=== PATIENT | male | born 1960 | race Caucasian/White ===

== ENCOUNTER 2017-04-04 12:38 | Inpatient (IN) ==
[2017-04-04 14:59] LABS: Hematocrit 39.6 % (37.5-50.1); Hemoglobin 13.1 g/dL (12.9-16.9); Lymphocytes # 0.7 K/mcL (0.6-4.6); Mean Corpuscular HGB Conc 33.1 g/dL (31.6-35.5); Mean Corpuscular Hemoglobin 28.4 pg (28.0-33.3); Mean Corpuscular Volume 85.7 fL (83.0-100.0); Mean Platelet Volume 9.1 fL (9.4-12.4); Platelet Count 286 K/mcL (140-400); Red Blood Count 4.62 M/mcL (4.19-5.50); Red Cell Distribution Width 13.1 % (11.5-14.5)
[2017-04-04 15:10] LABS: Alanine Aminotransferase 23 Units/L (0-55); Albumin 3.1 g/dL (3.5-5.0); Albumin/Globulin Ratio 0.7 (1.1-2.2); Alkaline Phosphatase 97 Units/L (38-126); Aspartate Amino Transferase 27 Units/L (5-34); BUN/Creatinine Ratio 17 (6-26); Blood Urea Nitrogen 15 mg/dL (8-26); Calcium 9.8 mg/dL (8.6-10.8); Carbon Dioxide 27 mEq/L (19-29); Chloride 100 mEq/L (98-109); Globulin 4.6 g/dL (2.4-3.5); Glucose 148 mg/dL (70-99); Osmolality,Calculated 284 (280-300); Potassium 3.5 mEq/L (3.5-4.5); Sodium 135 mEq/L (136-145); Total Protein 7.7 g/dL (6.0-8.3); eGFR For African Americans > 60 (> 60); eGFR For Non-African Americans > 60 (> 60)
[2017-04-04 15:11] LABS: Bilirubin,Total < 0.3 mg/dL (0.2-1.2)
[2017-04-04 15:18] LABS: Monocytes # 0.7 K/mcL (0.0-1.3); Neutrophils # 15.5 K/mcL (1.6-8.9); Platelet Estimate Normal (Normal)
--- NOTE | 2017-04-04 15:25 | Emergency Department Note ---
Disposition Clinical Impression: Cellulitis Qualifiers: Site of cellulitis: extremity Site of cellulitis of extremity: lower extremity Laterality: right Qualified Code(s): L03.115 - Cellulitis of right lower limb Disposition: Admitted As Inpatient Referrals: Rosa Baugh MD [Primary Care Provider] - Forms: ED Satisfaction Letter Extremity Problem HPI - General Chief complaint: ED Extremity Problem,Nontraumatic Stated complaint: needs antibiotic per Dr. Andres Time Seen by Provider: 04/04/17 14:39 Source: patient Mode of arrival: ambulatory Limitations: no limitations Nursing Notes Reviewed: Yes Vital Signs Reviewed: Yes - History of Present Illness HPI Narrative: Patient presents to the ED with the chief complaint of right leg pain and swelling. She reports that 3 days ago he started developing pain and swelling in his right knee. Went to see his PCP who thought that it could be a septic arthritis , so he was referred to orthopedics. He went to see Dr. Andres today with orthopedics, who performed a knee MRI , which showed a diffuse cellulitis. So he was sent over here for further evaluation. Patient does report intermittent fevers over the last 2 days. He has had increasing pain and swelling which started in his knee and is gone, distal. He has an area over his medial malleolus that had a previous scar which has since blistered and opened up to start draining. No history of DVT or PE. States he is previously healthy. He is still able to ambulate and denies any chest pain or shortness of breath Pain Scale: 6 - Related Data Home Medications Medication Instructions Recorded Confirmed Cephalexin [Keflex] 500 mg PO TID 04/04/17 04/04/17 Tramadol HCl [Ultram] 50 - 100 mg PO Q6H PRN 04/04/17 04/04/17 Allergies Allergy/AdvReac Type Severity Reaction Status Date / Time ivp dye AdvReac Difficulty Uncoded 04/04/17 12:42 Breathing Constitutional: Reports: fever Eyes: Denies: vision change Cardiovascular: Denies: chest pain Respiratory: Denies: dyspnea Gastrointestinal: Denies: vomiting Musculoskeletal: Reports: as per HPI, joint swelling, arthralgia, myalgia. Denies: back pain Integumentary: Reports: rash, lesions Neurological: Denies: headache Endocrine: Denies: fatigue Past Medical History - Past Medical History Attestation: Yes The following information was validated with the patient. Source: patient Medical history: Reports: atrial fibrillation, cancer, kidney stones, other Psychiatric history: Reports: no psych history - Social History Smoking Status: Current every day smoker Smokeless Tobacco Status: Yes Alcohol use: Reports: occasionally Drug use: Reports: none Physical Exam - General Limitations: no limitations General appearance: alert, in no apparent distress - Head Head exam: atraumatic, normocephalic, normal inspection - Chest Chest inspection: Present: normal inspection, symmetric chest wall rise - Respiratory Respiratory exam: Present: normal lung sounds bilaterally - Cardiovascular Cardiovascular exam: Present: regular rate, normal rhythm, normal heart sounds - Abdominal Exam Abdominal exam: Present: soft, Non-Tender. Absent: tenderness, distention, guarding, rebound, rigidity - Expanded Lower Extremity Exam Hip/Pelvis exam: Present: normal inspection, full ROM Upper leg exam: Present: normal inspection, full ROM Knee exam: Present: tenderness, swelling, erythema, effusion. Absent: deformity , crepitus Lower leg exam: Present: full ROM, tenderness, swelling, erythema Ankle exam: Present: full ROM, tenderness, swelling, erythema, other. Absent: crepitus Foot/toe exam: Present: full ROM, tenderness, swelling. Absent: erythema Neurovascular/Tendon exam: Present: normal capillary refill. Absent: pulse deficit - Neurological Exam Neurological exam: Present: alert, oriented X3 - Psychiatric Psychiatric exam: Present: normal affect, normal mood - Skin Skin exam: Present: warm, dry, intact, erythema (2. Right knee and leg) Course Course Narrative: 56 -year-old male presenting with right knee cellulitis. Has been intermittently febrile, has a leukocytosis here, was started on Keflex and prednisone as an outpatient. Presents now for further evaluation. Patient does have tense compartments in his lower extremity, however, has normal sensation and pulses. Feel that compartment syndrome is low risk at this point. We will get blood cultures added a lactate IV antibiotics and CT his leg and admitted to the hospital. Vital Signs Temperature 98.1 F 04/04/17 12:43 Pulse Rate 78 04/04/17 12:43 Respiratory Rate 20 04/04/17 12:43 Blood Pressure 118/74 04/04/17 12:43 O2 Sat by Pulse Oximetry 94 04/04/17 12:43 Temperature 98.1 F 04/04/17 12:43 Pulse Rate 78 04/04/17 12:43 Respiratory Rate 20 04/04/17 12:43 Blood Pressure 118/74 04/04/17 12:43 O2 Sat by Pulse Oximetry 94 04/04/17 12:43 Oxygen Delivery Oxygen Delivery Room Air Extremity Problem, Nontraumati - Lab Data Result diagrams: 04/04/17 14:49 04/04/17 14:49 Lab Results 04/04/17 04/04/17 04/04/17 Range/Units 14:49 14:49 16:02 WBC 16.8 H (4.3-11.1) K/mcL RBC 4.62 (4.19-5.50) M/mcL Hgb 13.1 (12.9-16.9) g/dL Hct 39.6 (37.5-50.1) % MCV 85.7 (83.0-100.0) fL MCH 28.4 (28.0-33.3) pg MCHC 33.1 (31.6-35.5) g/dL RDW 13.1 (11.5-14.5) % Plt Count 286 (140-400) K/mcL MPV 9.1 L (9.4-12.4) fL Seg Neutrophils % 92.0 % Lymphocytes % 4.0 % Monocytes % 4.0 % Neutrophils # 15.5 H (1.6-8.9) K/mcL Lymphocytes # 0.7 (0.6-4.6) K/mcL Monocytes # 0.7 (0.0-1.3) K/mcL Platelet Estimate Normal (Normal) Sodium 135 L (136-145) mEq/L Potassium 3.5 (3.5-4.5) mEq/L Chloride 100 (98-109) mEq/L Carbon Dioxide 27 (19-29) mEq/L BUN 15 (8-26) mg/dL Creatinine 0.87 (0.72-1.25) mg/dL Est GFR ( Amer) > 60 (> 60) Est GFR (Non-Af Amer) > 60 (> 60) BUN/Creatinine Ratio 17 (6-26) Glucose 148 H (70-99) mg/dL Calculated Osmolality 284 (280-300) Lactic Acid 1.8 (0.5-2.2) mmol/L Calcium 9.8 (8.6-10.8) mg/dL Total Bilirubin < 0.3 (0.2-1.2) mg/dL AST 27 (5-34) Units/L ALT 23 (0-55) Units/L Alkaline Phosphatase 97 (38-126) Units/L C-Reactive Protein (Less than 5) mg/L Serum Total Protein 7.7 (6.0-8.3) g/dL Albumin 3.1 L (3.5-5.0) g/dL Globulin 4.6 H (2.4-3.5) g/dL Albumin/Globulin Ratio 0.7 L (1.1-2.2) 04/04/17 Range/Units 16:02 WBC (4.3-11.1) K/mcL RBC (4.19-5.50) M/mcL Hgb (12.9-16.9) g/dL Hct (37.5-50.1) % MCV (83.0-100.0) fL MCH (28.0-33.3) pg MCHC (31.6-35.5) g/dL RDW (11.5-14.5) % Plt Count (140-400) K/mcL MPV (9.4-12.4) fL Seg Neutrophils % % Lymphocytes % % Monocytes % % Neutrophils # (1.6-8.9) K/mcL Lymphocytes # (0.6-4.6) K/mcL Monocytes # (0.0-1.3) K/mcL Platelet Estimate (Normal) Sodium (136-145) mEq/L Potassium (3.5-4.5) mEq/L Chloride (98-109) mEq/L Carbon Dioxide (19-29) mEq/L BUN (8-26) mg/dL Creatinine (0.72-1.25) mg/dL Est GFR ( Amer) (> 60) Est GFR (Non-Af Amer) (> 60) BUN/Creatinine Ratio (6-26) Glucose (70-99) mg/dL Calculated Osmolality (280-300) Lactic Acid (0.5-2.2) mmol/L Calcium (8.6-10.8) mg/dL Total Bilirubin (0.2-1.2) mg/dL AST (5-34) Units/L ALT (0-55) Units/L Alkaline Phosphatase (38-126) Units/L C-Reactive Protein 227 H (Less than 5) mg/L Serum Total Protein (6.0-8.3) g/dL Albumin (3.5-5.0) g/dL Globulin (2.4-3.5) g/dL Albumin/Globulin Ratio (1.1-2.2) Attestation Statement - Attestation Attestation: I examined this patient and my medical decision-making was reviewed with the Resident Physician. I agree with the documented findings, disposition and treatment plan as described except to the extent set forth below. In summary this is a male patient with known cellulitis to the lower extremity. He has confirmed cellulitis on MRI. Presents today with worsening cellulitis from outpatient center. Outpatient physician is requesting admission for IV antibiotics. Patient has soft compartments but moderate swelling. Ultrasound was obtained to rule out DVT. This is negative. lirnc score was 5. Vancomycin as well as Zosyn initiated. X-ray obtained to rule out gas. Plan to admit for evaluation of cellulitis. No evidence of DVT on ultrasound.
[2017-04-04] MEDS ORDERED: *HR* OxyCODONE/APAP 10/325 TABLET PO ONE (15:38)
[2017-04-04] MEDS ORDERED: *HR* LORazepam 1 MG TABLET PO ONE (15:38)
[2017-04-04] MEDS ORDERED: Piperacillin/Tazobactam 4.5 GM in D5% in Water (Mini-Bag+) 100 ML IVPB ONE (15:39)
[2017-04-04] MEDS ORDERED: Vancomycin 1,250 MG in D5% in Water 250 ML IVPB ONE (15:39)
--- NOTE | 2017-04-04 17:49 | Venous Imaging Report ---
LE Venous Duplex Patient Name:Prosper Rivers Order Number:[id number] Procedure Date:04/04/2017 Date:1960Age:56 yrs Gender:Male Location:[facility] ED Room #: ER10 Station Installation Supervisor:Brunilda rAt RDCS Referring MD:Mark Arce DO core stacker:Rosa Buagh MD Reading MD:Maco Carter MD , FACS Primary Indications:Swelling of limb Secondary Indications: Impressions: Right lower extremity: normal superficial and deep exam. Recommendations: Preliminary given to Dr Arce in ED. Findings Venous Duplex Results: Right: Venous imaging of the lower extremity reveals full patency and normal vessel compressibility of the right distal iliac, right common femoral, right superficial femoral, right popliteal, right posterior tibial, right peroneal, right great saphenous and right lesser saphenous. Doppler signals in the evaluated veins were normal. Prior Study: No prior study available for comparison. Lower Extremity Venous Duplex Side Vein Compress Spontaneous Flow Augment Diameter (cm) Depth (cm) Right Distal Iliac Normal Yes Phasic Yes Right Common Femoral Normal Yes Phasic Yes Right Superficial Femoral Normal Yes Phasic Yes Right Popliteal Normal Yes Phasic Yes Right Posterior Tibial Normal Yes Phasic Yes Right Peroneal Normal Yes Phasic Yes Right Great Saphenous Normal Yes Phasic Yes Right Lesser Saphenous Normal Yes Phasic Yes Updated by Maco Carter MD, FACS on 04/04/2017 5:42:54 PM Maco Carter MD electronically signed on 04/04/2017 5:43:11 PM with status of Final
--- NOTE | 2017-04-04 21:29 | Internal Med History&Physical ---
Date of Encounter: 04/04/17 Time of Encounter: 21:24 Assessment and Plan (1) Cellulitis of right lower extremity Current visit: Yes Status: Acute Patient received treatment with Keflex outpatient for 4 days however her symptoms got worse. This suggests the presence of cellulitis of the lower extremity which failed outpatient treatment. Plan: We will admit the patient to the hospital. He will require 3 days of IV antibiotics. We will follow-up blood culture drawn in the emergency department. We will start broad-spectrum IV antibiotics with Zosyn and vancomycin to cover streptococcus, MRSA and gram-negative rods. We will provide pain control with oxycodone and IV Dilaudid for breakthrough pain. He is at high risk for morbidity mortality and complications including compartment syndrome due to severe cellulitis requiring treatment with IV vancomycin which needs blood level monitoring for toxicity. (2) Tobacco abuse disorder Current visit: Yes Status: Acute I have provided smoking cessation counseling. We will offer nicotine replacement therapy as needed. (3) Colon cancer Current visit: Yes Status: Acute I recommend outpatient follow-up with oncologist. Qualifiers: Colon location: unspecified part of colon Qualified Code(s): C18.9 - Malignant neoplasm of colon, unspecified (4) DVT prophylaxis Current visit: Yes Status: Acute Subcutaneous Lovenox. (5) Patellar bursitis of right knee Current visit: Yes Status: Acute Patellar bursitis indicated by outpatient MRI. Broad spectrum IV antibiotics with Zosyn and vancomycin. Internal Medicine - H&P: HPI Chief complaint: Right knee pain Admitted From: Emergency Dept Plans for Post Hospital Care: Home History of present illness: Mr. Rivers is a 56 year old male with past medical history significant for colon cancer who presented to the hospital for evaluation of right knee pain. Mr. Rivers reports that the pain started 5 days ago just under his right knee cap. He does not recall having any injuries to the right lower extremity or any insect bites. His pain got worse and was associated with swelling of the right knee and started involving the right calf and causing discoloration of the skin. He noticed some blister formation on the inside of the right ankle that ruptured and started leaking some clear fluid. Today he reports that the pain is severe with ambulation, mild to moderate after administration of pain medication and at rest, dull and aching about the right knee and right lower extremity and still associated with swelling. He also had associated subjective fevers and body aches. He was treated with his PCP with Keflex and prednisone but did not notice any improvement. He had an MRI of the lower extremity which reportedly showed soft tissue swelling. A 10 point review of systems was performed. Pertinent positives as above, otherwise negative. Past medical history: Colon cancer status post resection and chemotherapy. Family history: Positive for colon cancer and the patient's paternal grandmother Social history: He smokes one pack of cigarettes a day, drinks alcohol socially , denies recreational drug use. Past Med Surg Social Fam HX - Past Medical History Medical history: atrial fibrillation, cancer, kidney stones, other Psychiatric history: no psych history - Past Surgical History Surgical History: cholecystectomy - Social History Smoking Status: Current every day smoker Packs per day: 1 Smokeless Tobacco Status: Yes Alcohol use: occasionally Drug use: none - Family History Paternal Grandmother Living Status: Cause of : colon cancer Hx Family Cancer: Yes (Colon cancer) Father Living Status: Cause of : ALS Hx Family Cardiac Disorders: Yes (NM, Triple bipass) Internal Medicine - H&P: Meds Cephalexin [Keflex] 500 mg PO TID 04/04/17 [History] Tramadol HCl [Ultram] 50 - 100 mg PO Q6H PRN 04/04/17 [History] Allergies ivp dye Adverse Reaction (Uncoded 04/04/17 12:42) Difficulty Breathing All Systems PM: A 10-system review of systems was performed and is negative for pertinent findings except as documented above in the HPI. - Constitutional Vitals: Temp Pulse Resp BP Pulse Ox 97.5 F L 86 18 109/73 95 04/04/17 20:08 04/04/17 20:08 04/04/17 20:08 04/04/17 20:08 04/04/17 20:08 - Eye Eye exam: Present: conjuntiva pink, sclera anicteric Additional comments: Right eye cataract and decreased pupillary response to light. Left pupil with brisk reaction to light. - Neck Neck exam general surgery: Present: supple, trachea midline. Absent: lymphadenopathy - Respiratory Respiratory exam: Present: CTAB. Absent: accessory muscle use, rales, rhonchi, wheezes - Cardiovascular Cardiovascular exam: Present: RRR, +S1, +S2. Absent: diastolic murmur, gallop, rubs, systolic murmur - GI/Abdominal GI/Abdominal exam: Present: hernia (Reducible incisional abdominal hernia), normal bowel sounds, soft, no peritoneal signs. Absent: distended, tenderness - Extremities Exam Extremities exam: Present: pedal edema (See skin exam), warm, radial pulses palpable and symetrical. Absent: calf tenderness, cyanotic - Neurological Exam Neurological exam: Present: CN II-XII intact, oriented X3, no focal deficits. Absent: pronater drift, facial droop, speech deficit - Skin Additional comments: Right lower extremity soft tissue swelling below the knee and also involving the subpatellar area with an area of redness and warmth, 2 superficial erosions on the medial aspect of the right ankle appeared to be ruptured blisters. No drainage. No fluctuance. Pulses are strong at dorsalis pedis bilaterally. Internal Med - H&P Results - Labs CBC & Chem 7: 04/04/17 14:49 04/04/17 14:49 - Impressions MRI of the right lower extremity done outpatient reveals soft tissue swelling of the lower extremity consistent with cellulitis, trace right knee effusion unlikely to represent septic joint.
[2017-04-04] MEDS ORDERED: Naloxone 0.4 MG/ML INJ IVP PRN (21:38)
[2017-04-04] MEDS ORDERED: Acetaminophen 325 MG TABLET PO PRN (21:38)
[2017-04-04] MEDS ORDERED: Vancomycin 1,250 MG in D5% in Water 250 ML IVPB SCH (22:00)
[2017-04-05] MEDS: Piperacillin/Tazobactam 3.375 GM in D5% in Water (Mini-Bag+) 100 ML IVPB SCH ×3 (00:21→15:42)
[2017-04-05] MEDS: Vancomycin 1,250 MG in D5% in Water 250 ML IVPB SCH ×2 (04:24→15:41)
[2017-04-05] MEDS: *HR* OxyCODONE Immed Rel 5 MG TABLET PO PRN ×3 (04:29→18:44)
[2017-04-05] MEDS: *HR* Enoxaparin 40 MG/0.4 ML SYRINGE SQ SCH (04:30)
[2017-04-05 06:39] LABS: Basophils % 0.1 %; Eosinophils % 0.4 %; Hematocrit 34.2 % (37.5-50.1); Immature Granulocytes % 0.8 % (0-4); Lymphocytes # 1.8 K/mcL (0.6-4.6); Mean Corpuscular HGB Conc 33.6 g/dL (31.6-35.5); Mean Corpuscular Hemoglobin 28.9 pg (28.0-33.3); Mean Corpuscular Volume 85.9 fL (83.0-100.0); Mean Platelet Volume 9.4 fL (9.4-12.4); Monocytes # 0.8 K/mcL (0.0-1.3); Monocytes % 8.3 %; Neutrophils # 7.2 K/mcL (1.6-8.9); Platelet Count 236 K/mcL (140-400); Red Blood Count 3.98 M/mcL (4.19-5.50); Red Cell Distribution Width 13.1 % (11.5-14.5); Segmented Neutrophils % 72.4 %
[2017-04-05 06:41] LABS: Hemoglobin 11.5 g/dL (12.9-16.9)
[2017-04-05 06:52] LABS: BUN/Creatinine Ratio 16 (6-26); Blood Urea Nitrogen 16 mg/dL (8-26); Calcium 8.9 mg/dL (8.6-10.8); Carbon Dioxide 26 mEq/L (19-29); Chloride 105 mEq/L (98-109); Glucose 100 mg/dL (70-99); Magnesium 1.9 mg/dL (1.6-2.6); Osmolality,Calculated 285 (280-300); Potassium 3.4 mEq/L (3.5-4.5); Sodium 137 mEq/L (136-145); eGFR For African Americans > 60 (> 60); eGFR For Non-African Americans > 60 (> 60)
--- NOTE | 2017-04-05 07:51 | Orthopedic Consult Note ---
Date of Encounter: 04/05/17 Time of Encounter: 07:48 History of Present Illness HPI: Mr. Rivers is a 56 year old male Seen in our office yesterday by Dr. Andres for right leg cellulitis. Patient seen again this morning. States that the swelling is improving. Physical exam Right leg Erythema over tibial tubercle swelling right lower extremity Pain-free range of motion right knee No right knee effusion Neurovascularly intact MRI reviewed, minimal fluid in right knee joint, diffuse swelling no focal findings for abscess. Recommend continued IV antibiotics until swelling and symptoms improve no surgical intervention necessary. Past Med Surg Social Fam HX - Past Medical History Medical history: atrial fibrillation, cancer, kidney stones, other Psychiatric history: no psych history - Past Surgical History Surgical History: cholecystectomy - Social History Smoking Status: Current every day smoker Packs per day: 1 Smokeless Tobacco Status: Yes Alcohol use: occasionally Drug use: none - Family History Paternal Grandmother Living Status: Cause of : colon cancer Hx Family Cancer: Yes (Colon cancer) Father Living Status: Cause of : ALS Hx Family Cardiac Disorders: Yes ([place], Triple bipass) Medications and Allergies Cephalexin [Keflex] 500 mg PO TID 04/04/17 [History] Tramadol HCl [Ultram] 50 - 100 mg PO Q6H PRN 04/04/17 [History] Allergies ivp dye Adverse Reaction (Uncoded 04/04/17 12:42) Difficulty Breathing All Systems Reviewed: A 10-system review of systems was performed and is negative for pertinent findings except as documented above in the HPI. Physical Exam - Constitutional Vitals: Temp Pulse Resp BP Pulse Ox 98.1 F 87 16 112/68 99 04/05/17 06:53 04/05/17 06:53 04/05/17 06:53 04/05/17 06:53 04/05/17 06:53 Results - Labs Result Diagrams: 04/05/17 06:02 04/05/17 06:02 Labs: Abnormal lab results RBC 3.98 M/mcL (4.19-5.50) L 04/05/17 06:02 Hgb 11.5 g/dL (12.9-16.9) L D 04/05/17 06:02 Hct 34.2 % (37.5-50.1) L 04/05/17 06:02 Potassium 3.4 mEq/L (3.5-4.5) L 04/05/17 06:02 Glucose 100 mg/dL (70-99) H 04/05/17 06:02 C-Reactive Protein 227 mg/L (Less than 5) H 04/04/17 16:02 Albumin 3.1 g/dL (3.5-5.0) L 04/04/17 14:49 Globulin 4.6 g/dL (2.4-3.5) H 04/04/17 14:49 Albumin/Globulin Ratio 0.7 (1.1-2.2) L 04/04/17 14:49 H & H 04/05/17 Range/Units 06:02 Hgb 11.5 L D (12.9-16.9) g/dL Hct 34.2 L (37.5-50.1) % All other labs normal. Consult Discharge Plan - Plan Referrals: Rosa Baugh MD [Primary Care Provider] -
[2017-04-05] MEDS: *HR* HYDROmorphone (PF) 1 MG/ML SYRINGE IVP PRN ×3 (08:20→20:40)
--- NOTE | 2017-04-05 14:17 | Internal Med Progress Note ---
Date of Encounter: 04/06/17 Time of Encounter: 14:15 - Assessment and plan (1) Cellulitis of right lower extremity Current Visit: Yes Status: Acute Assessment and plan: admitted with Cellulitis of right lower extremity had previous history of colon cancer was seen by [facility] (PCP) and referred to ortho for ?bursitis. Seen by Ortho as outpatient and MRI was done which did not show any knee joint involvement. admitted in view of worsening cellulitis. Started on appropriate abx and Ortho recommendations appreciated. US Lower extremity :negative for DVT plan will keep close follow up on blood cultures will continue present treatment leg elevation will follow ortho recommendations (2) Colon cancer Current Visit: Yes Status: Acute Assessment and plan: history of colon cancer with prolong hospitalization with multiple surgeries in past Qualifiers: Colon location: unspecified part of colon Qualified Code(s): C18.9 - Malignant neoplasm of colon, unspecified (3) Tobacco abuse disorder Current Visit: Yes Status: Acute Assessment and plan: active smoker. not willing to quit (4) DVT prophylaxis Current Visit: Yes Status: Acute Assessment and plan: appropriate DVT prophylaxis. Late entry: i had seen this patient on 04/05 and note was generated on 04/05 but due to another patient's acute illness this note was not completed on 04/05. this note is complete on 04/06 but should be bill for 04/05. Medical decision making: patient's clinical condition may worse in spite of appropriate medications due underlying condition. - Subjective Interval history: Patient seen and examined. Chart reviewed. Patient is lying comfortably in her bed. Patient complains of right extremity pain. Patient denies cough, shortness of breath nausea and vomiting. - Constitutional Vitals: Temp Pulse Resp BP Pulse Ox 98.4 F 84 16 118/64 99 04/05/17 09:46 04/05/17 09:46 04/05/17 09:46 04/05/17 09:46 04/05/17 09:46 General appearance: Present: A&O X 3, morbidly obese, pleasant, no acute distress - Head Head exam: Present: atraumatic, normocephalic - Eye Eye exam: Present: PERRL, conjuntiva pink, sclera anicteric Pupils: Present: PERRL - Neck Neck exam general surgery: Present: supple, trachea midline. Absent: lymphadenopathy - Respiratory Respiratory exam: Present: CTAB. Absent: accessory muscle use, rales, rhonchi, wheezes - Cardiovascular Cardiovascular exam: Present: RRR, +S1, +S2. Absent: diastolic murmur, gallop, rubs, systolic murmur - GI/Abdominal GI/Abdominal exam: Present: normal bowel sounds, soft, no peritoneal signs. Absent: distended, tenderness - Extremities Exam Extremities exam: Present: warm, radial pulses palpable and symetrical. Absent : calf tenderness, cyanotic, pedal edema - Neurological Exam Neurological exam: Present: CN II-XII intact, oriented X3, no focal deficits. Absent: pronater drift, facial droop, speech deficit - Skin Skin exam: Present: dry, intact Internal Medicine: Result - Labs CBC & Chem 7: 04/05/17 06:02 04/05/17 06:02 Labs: Short CBC 04/05/17 Range/Units 06:02 WBC 10.0 (4.3-11.1) K/mcL Hgb 11.5 L D (12.9-16.9) g/dL Hct 34.2 L (37.5-50.1) % Plt Count 236 (140-400) K/mcL Neutrophils # 7.2 (1.6-8.9) K/mcL BMP 04/05/17 06:02 Sodium 137 Potassium 3.4 L Chloride 105 Carbon Dioxide 26 BUN 16 Creatinine 0.97 Glucose 100 H Calcium 8.9 Consult Discharge Plan - Plan Referrals: Rosa Baugh MD [Primary Care Provider] -
[2017-04-05] MEDS ORDERED: Acetaminophen IV 1,000 MG/100 ML INFUS..BTL IVPB ONE (23:15)
[2017-04-06] MEDS: Piperacillin/Tazobactam 3.375 GM in D5% in Water (Mini-Bag+) 100 ML IVPB SCH ×3 (00:32→16:34)
[2017-04-06] MEDS ORDERED: Ketorolac 30 MG/ML VIAL IVP ONE (01:01)
[2017-04-06] MEDS ORDERED: *HR* HYDROmorphone (PF) 1 MG/ML SYRINGE IVP PRN (01:02)
--- NOTE | 2017-04-06 01:11 | Orthopedics Progress Note ---
Date of Encounter: 04/06/17 Time of Encounter: 01:06 Subjective Interval history: Called to see patient for concern of compartment syndrome by hospitalist. Patient seen this morning no acute distress. Reports getting up for shower having leg dependent and then having increased pain getting back into bed. On physical exam still with persistent swelling of right lower extremity Still with erythema over tibial tubercle Compartments of right lower leg are soft although he is sensitive to light touch. He has no pain on passive range of motion of his toes or his ankle. Neurovascular intact distally Clinically the patient does not have compartment syndrome. I have recommended elevation, I ordered foot pumps this morning which were not ordered today placed on the patient now, we increased his pain medication slightly, started him on Neurontin since the swelling may be irritating the nerves. He will also received a dose of Toradol. Once again with soft compartments no pain with passive range of motion neurovascularly intact. I have No suspicion for compartment syndrome. Objective Vital signs: Vital Signs Temp Pulse Resp BP Pulse Ox 04/06/17 00:53 97.7 F 75 16 109/65 98 04/05/17 21:32 98.0 F 98 20 123/77 98 04/05/17 14:11 98.8 F 89 16 123/67 99 04/05/17 09:46 98.4 F 84 16 118/64 99 04/05/17 07:58 99 04/05/17 06:53 98.1 F 87 16 112/68 99 04/05/17 05:02 97.7 F 83 17 108/78 98 Intake and Output 04/05/17 04/05/17 04/06/17 15:59 23:59 07:59 Intake Total 800 / 800 350 / 350 Output Total 250 / 250 Balance 550 / 550 350 / 350 Intake: IV Fluids 350 / 350 350 / 350 Zosyn 3.375 GM In 100 / 100 100 / 100 Dextrose 5% (Minibag+) 100 ML 100 ML @ 25 mls/hr IVPB Q8HR [facility] Rx#: [id number] Vancocin 1,250 MG In 250 / 250 250 / 250 Dextrose 5% 250 ML @ 166. 667 mls/hr IVPB Q12H [facility] Rx#:[id number] Oral 450 / 450 Output: Urine 250 / 250 Other: Meal Lunch Percent of Meal Consumed 25% - Labs CBC & BMP: 04/05/17 06:02 07/29/17 06:02 Labs: Abnormal lab results RBC 3.98 M/mcL (4.19-5.50) L 04/05/17 06:02 Hgb 11.5 g/dL (12.9-16.9) L D 04/05/17 06:02 Hct 34.2 % (37.5-50.1) L 04/05/17 06:02 Potassium 3.4 mEq/L (3.5-4.5) L 04/05/17 06:02 Glucose 100 mg/dL (70-99) H 04/05/17 06:02 C-Reactive Protein 227 mg/L (Less than 5) H 04/04/17 16:02 Albumin 3.1 g/dL (3.5-5.0) L 04/04/17 14:49 Globulin 4.6 g/dL (2.4-3.5) H 04/04/17 14:49 Albumin/Globulin Ratio 0.7 (1.1-2.2) L 04/04/17 14:49 Consult Discharge Plan - Plan Referrals: Rosa Baugh MD [Primary Care Provider] -
[2017-04-06] MEDS: Gabapentin 300 MG CAPSULE PO SCH ×4 (01:25→21:29)
[2017-04-06 04:36] LABS: Basophils % 0.4 %; Eosinophils # 0.1 K/mcL (0.0-0.6); Eosinophils % 0.6 %; Hematocrit 35.9 % (37.5-50.1); Hemoglobin 11.9 g/dL (12.9-16.9); Lymphocytes # 1.7 K/mcL (0.6-4.6); Lymphocytes % 18.7 %; Mean Corpuscular HGB Conc 33.1 g/dL (31.6-35.5); Mean Corpuscular Hemoglobin 28.3 pg (28.0-33.3); Mean Corpuscular Volume 85.5 fL (83.0-100.0); Mean Platelet Volume 9.2 fL (9.4-12.4); Monocytes # 0.9 K/mcL (0.0-1.3); Monocytes % 10.5 %; Neutrophils # 6.1 K/mcL (1.6-8.9); Platelet Count 243 K/mcL (140-400); Red Cell Distribution Width 13.3 % (11.5-14.5); Segmented Neutrophils % 68.8 %
[2017-04-06 04:49] LABS: Alanine Aminotransferase 76 Units/L (0-55); Albumin/Globulin Ratio 0.7 (1.1-2.2); Alkaline Phosphatase 113 Units/L (38-126); Aspartate Amino Transferase 81 Units/L (5-34); BUN/Creatinine Ratio 17 (6-26); Bilirubin,Total 0.5 mg/dL (0.2-1.2); Blood Urea Nitrogen 16 mg/dL (8-26); Calcium 8.7 mg/dL (8.6-10.8); Carbon Dioxide 25 mEq/L (19-29); Chloride 103 mEq/L (98-109); Globulin 3.5 g/dL (2.4-3.5); Glucose 93 mg/dL (70-99); Osmolality,Calculated 281 (280-300); Potassium 3.7 mEq/L (3.5-4.5); Sodium 135 mEq/L (136-145); eGFR For African Americans > 60 (> 60); eGFR For Non-African Americans > 60 (> 60)
[2017-04-06 04:50] LABS: Albumin 2.4 g/dL (3.5-5.0); Total Protein 5.9 g/dL (6.0-8.3)
[2017-04-06] MEDS: Vancomycin 1,250 MG in D5% in Water 250 ML IVPB SCH ×2 (05:09→16:34)
[2017-04-06] MEDS: *HR* Enoxaparin 40 MG/0.4 ML SYRINGE SQ SCH (05:10)
--- NOTE | 2017-04-06 11:09 | Venous Imaging Report ---
LE Venous Duplex Patient Name:Prosper Rivers Order Number:[id number] Procedure Date:04/06/2017 Date:1960Age:56 yrs Gender:Male Location:[facility] Room #: 3NE24 Major Appliance Assembly Supervisor:Helen Mendez RDCS Referring MD:Brayan Arechiga MD yarn conditioner:Rosa Baugh MD Reading MD:Maco Carter MD , FACS Primary Indications:Leg pain, swelling Secondary Indications: Risk Factors Yes/No Hx of DVT No Anticoagulants No Impressions: Right lower extremity: normal superficial and deep exam. Left lower extremity: normal contralateral exam. Findings Venous Duplex Results: Right: Venous imaging of the lower extremity reveals full patency and normal vessel compressibility of the right distal iliac, right common femoral, right superficial femoral, right popliteal, right posterior tibial, right peroneal, right great saphenous and right lesser saphenous. Doppler signals in the evaluated veins were normal. Left: Venous imaging of the lower extremity reveals full patency and normal vessel compressibility of the left common femoral. Doppler signals in the evaluated veins were normal. Prior Study: No change compared to prior study dated: 04/04/2017. PREVIOUS DOPPLER ON RLE NEGATIVE FOR DVT. Lower Extremity Venous Duplex Side Vein Compress Spontaneous Flow Augment Diameter (cm) Depth (cm) Right Distal Iliac Normal Yes Phasic Yes Right Common Femoral Normal Yes Phasic Yes Right Superficial Femoral Normal Yes Phasic Yes Right Popliteal Normal Yes Phasic Yes Right Posterior Tibial Normal Yes Phasic Yes Right Peroneal Normal Yes Phasic Yes Right Great Saphenous Normal Yes Phasic Yes Right Lesser Saphenous Normal Yes Phasic Yes Left Common Femoral Normal Yes Phasic Yes Updated by Maco Carter MD, FACS on 04/06/2017 11:04:01 AM Maco Carter MD electronically signed on 04/06/2017 11:04:30 AM with status of Final
[2017-04-06] MEDS: *HR* OxyCODONE Immed Rel 5 MG TABLET PO PRN ×2 (14:59→19:38)
--- NOTE | 2017-04-06 17:49 | Internal Med Progress Note ---
Date of Encounter: 04/06/17 Time of Encounter: 17:47 - Assessment and plan (1) Cellulitis of right lower extremity Current Visit: Yes Status: Acute Assessment and plan: admitted with Cellulitis of right lower extremity had previous history of colon cancer was seen by [employer] UP OPERATOR HELPER (PCP) and referred to ortho for ?bursitis. Seen by Ortho as outpatient and MRI was done which did not show any knee joint involvement. admitted in view of worsening cellulitis. Started on appropriate abx and Ortho recommendations appreciated. US Lower extremity :negative for DVT plan will keep close follow up on blood cultures will continue present treatment leg elevation will follow ortho recommendations 04/06/2017. Overnight events noted. Possibility of her compartment syndrome was raised due to the severe pain. Orthopedic input noted and appreciated. Plan: We will continue antibiotics for now. Elevation of foot. Close observation. (2) Colon cancer Current Visit: Yes Status: Acute Assessment and plan: history of colon cancer with prolong hospitalization with multiple surgeries in past Qualifiers: Colon location: unspecified part of colon Qualified Code(s): C18.9 - Malignant neoplasm of colon, unspecified (3) Tobacco abuse disorder Current Visit: Yes Status: Acute Assessment and plan: active smoker. not willing to quit (4) DVT prophylaxis Current Visit: Yes Status: Acute Assessment and plan: appropriate DVT prophylaxis. Late entry: i had seen this patient on 04/05 and note was generated on 04/05 but due to another patient's acute illness this note was not completed on 04/05. this note is complete on 04/06 but should be bill for 04/05. Medical decision making: patient's clinical condition may worse in spite of appropriate medications due underlying condition. - Subjective Interval history: Patient seen and examined. Chart reviewed. Patient is lying comfortably in her bed. Patient complains of right extremity pain. Patient denies cough, shortness of breath nausea and vomiting. 04/06/2017. Patient seen and examined. HEENT is comfortably lying in the bed. Noted that there is a still swelling of the right lower extremity. Orthopedic input appreciated. - Constitutional Vitals: Temp Pulse Resp BP Pulse Ox 98.8 F 80 16 137/87 97 04/06/17 15:16 04/06/17 15:16 04/06/17 15:16 04/06/17 15:16 04/06/17 15:16 General appearance: Present: A&O X 3, morbidly obese, pleasant, no acute distress - Head Head exam: Present: atraumatic, normocephalic - Eye Eye exam: Present: PERRL, conjuntiva pink, sclera anicteric Pupils: Present: PERRL - Neck Neck exam general surgery: Present: supple, trachea midline. Absent: lymphadenopathy - Respiratory Respiratory exam: Present: CTAB. Absent: accessory muscle use, rales, rhonchi, wheezes - Cardiovascular Cardiovascular exam: Present: RRR, +S1, +S2. Absent: diastolic murmur, gallop, rubs, systolic murmur - GI/Abdominal GI/Abdominal exam: Present: normal bowel sounds, soft, no peritoneal signs. Absent: distended, tenderness - Extremities Exam Extremities exam: Present: warm, radial pulses palpable and symetrical. Absent : calf tenderness, cyanotic, pedal edema Additional comments: Right lower extremity swollen and tender. - Neurological Exam Neurological exam: Present: CN II-XII intact, oriented X3, no focal deficits. Absent: pronater drift, facial droop, speech deficit - Skin Skin exam: Present: dry, intact Internal Medicine: Result - Labs CBC & Chem 7: 04/06/17 03:40 04/06/17 03:40 Labs: Short CBC 04/06/17 Range/Units 03:40 WBC 8.9 (4.3-11.1) K/mcL Hgb 11.9 L (12.9-16.9) g/dL Hct 35.9 L (37.5-50.1) % Plt Count 243 (140-400) K/mcL Neutrophils # 6.1 (1.6-8.9) K/mcL BMP 04/06/17 03:40 Sodium 135 L Potassium 3.7 Chloride 103 Carbon Dioxide 25 BUN 16 Creatinine 0.92 Glucose 93 Calcium 8.7 Liver Function 04/06/17 Range/Units 03:40 Total Bilirubin 0.5 (0.2-1.2) mg/dL AST 81 H (5-34) Units/L ALT 76 H (0-55) Units/L Alkaline Phosphatase 113 (38-126) Units/L Albumin 2.4 L D (3.5-5.0) g/dL - VTE Documentation of Mechanical Device: Venous foot pump, device Consult Discharge Plan - Plan Referrals: Rosa Baugh MD [Primary Care Provider] -
[2017-04-07] MEDS: Piperacillin/Tazobactam 3.375 GM in D5% in Water (Mini-Bag+) 100 ML IVPB SCH ×3 (00:21→16:55)
[2017-04-07] MEDS: Vancomycin 1,250 MG in D5% in Water 250 ML IVPB SCH ×2 (04:22→16:56)
[2017-04-07] MEDS: *HR* Enoxaparin 40 MG/0.4 ML SYRINGE SQ SCH (05:28)
[2017-04-07 05:33] LABS: Basophils # 0.1 K/mcL (0.0-0.2); Basophils % 0.8 %; Eosinophils # 0.1 K/mcL (0.0-0.6); Eosinophils % 1.5 %; Hematocrit 35.3 % (37.5-50.1); Hemoglobin 11.6 g/dL (12.9-16.9); Lymphocytes # 1.6 K/mcL (0.6-4.6); Lymphocytes % 16.9 %; Mean Corpuscular HGB Conc 32.9 g/dL (31.6-35.5); Mean Corpuscular Volume 85.3 fL (83.0-100.0); Monocytes # 0.9 K/mcL (0.0-1.3); Monocytes % 9.8 %; Neutrophils # 6.4 K/mcL (1.6-8.9); Platelet Count 261 K/mcL (140-400); Red Blood Count 4.14 M/mcL (4.19-5.50); Red Cell Distribution Width 13.6 % (11.5-14.5)
[2017-04-07 05:51] LABS: Alanine Aminotransferase 69 Units/L (0-55); Albumin 2.4 g/dL (3.5-5.0); Albumin/Globulin Ratio 0.7 (1.1-2.2); Alkaline Phosphatase 103 Units/L (38-126); Aspartate Amino Transferase 34 Units/L (5-34); BUN/Creatinine Ratio 14 (6-26); Bilirubin,Total 0.5 mg/dL (0.2-1.2); Blood Urea Nitrogen 13 mg/dL (8-26); Calcium 8.7 mg/dL (8.6-10.8); Carbon Dioxide 26 mEq/L (19-29); Chloride 104 mEq/L (98-109); Globulin 3.5 g/dL (2.4-3.5); Glucose 100 mg/dL (70-99); Osmolality,Calculated 282 (280-300); Potassium 3.7 mEq/L (3.5-4.5); Sodium 136 mEq/L (136-145); Total Protein 5.9 g/dL (6.0-8.3); eGFR For African Americans > 60 (> 60); eGFR For Non-African Americans > 60 (> 60)
--- NOTE | 2017-04-07 06:42 | Orthopedics Progress Note ---
Date of Encounter: 04/07/17 Time of Encounter: 06:42 Subjective Interval history: Patient seen this morning feeling better Right lower extremity Compartments soft Neurovascularly intact Swelling improving Pain-free motion right knee Still with erythema over tibial tubercle palpable abscess Continue antibiotics re-consult if condition changes Objective Vital signs: Vital Signs Temp Pulse Resp BP Pulse Ox 04/07/17 03:34 98.2 F 93 17 126/79 92 04/06/17 23:53 98.5 F 92 16 126/77 97 04/06/17 19:00 98.2 F 88 18 118/74 95 04/06/17 15:16 98.8 F 80 16 137/87 97 04/06/17 11:08 98.5 F 69 16 122/79 98 04/06/17 07:06 98.4 F 71 16 111/67 96 Intake and Output 04/06/17 04/06/17 04/07/17 15:59 23:59 07:59 Intake Total 1060 / 1060 450 / 450 120 / 120 Output Total 525 / 525 Balance 1060 / 1060 450 / 450 -405 / -405 Intake: IV Fluids 100 / 100 350 / 350 Zosyn 3.375 GM In 100 / 100 100 / 100 Dextrose 5% (Minibag+) 100 ML 100 ML @ 25 mls/hr IVPB Q8HR [facility] Rx#: [id number] Vancocin 1,250 MG In 250 / 250 Dextrose 5% 250 ML @ 166. 667 mls/hr IVPB Q12H [facility] Rx#:[id number] Oral 960 / 960 100 / 100 120 / 120 Output: Urine 525 / 525 Other: Meal Lunch Percent of Meal Consumed 90% # Voids 0 Weight 79.4 kg Patient Weight 04/07/17 23:59 Weight 79.4 kg - Labs CBC & BMP: 04/07/17 04:25 04/07/17 04:25 Labs: Abnormal lab results RBC 4.14 M/mcL (4.19-5.50) L 04/07/17 04:25 Hgb 11.6 g/dL (12.9-16.9) L 04/07/17 04:25 Hct 35.3 % (37.5-50.1) L 04/07/17 04:25 MPV 9.0 fL (9.4-12.4) L 04/07/17 04:25 Glucose 100 mg/dL (70-99) H 04/07/17 04:25 ALT 69 Units/L (0-55) H 04/07/17 04:25 C-Reactive Protein 227 mg/L (Less than 5) H 04/04/17 16:02 Serum Total Protein 5.9 g/dL (6.0-8.3) L 04/07/17 04:25 Albumin 2.4 g/dL (3.5-5.0) L 04/07/17 04:25 Albumin/Globulin Ratio 0.7 (1.1-2.2) L 04/07/17 04:25 - VTE Documentation of Mechanical Device: Venous foot pump, device Consult Discharge Plan - Plan Referrals: Rosa Baugh MD [Primary Care Provider] -
[2017-04-07] MEDS: Gabapentin 300 MG CAPSULE PO SCH ×3 (09:10→22:02)
[2017-04-07] MEDS: *HR* OxyCODONE Immed Rel 5 MG TABLET PO PRN ×2 (09:23→15:47)
--- NOTE | 2017-04-07 14:28 | Infectious Disease Consult ---
Addendum entered and electronically signed by Hussein Arriaga DO 04/07/17 15:03: This note was signed erroneously. Please see new consult note. Original Note: Date of Encounter: 04/07/17 Time of Encounter: 14:26 Infectious Disease HPI - Data of Consult Consult date: 04/07/17 Requesting Physician: Loren Cole MD Primary Care Provider: Rosa Baugh MD - Consult Narrative Reason for consult: Right lower limb cellulitis History of present illness: Mr. Rivers is a 56 year old male admitted on 04/04/17 for cellulitis of the right lower extremity. Infectious disease was consulted on 04/06/17 for right lower lobe cellulitis. Mr. Rivers is a 56 year old male with a PMH significant for colon cancer who presented to the hospital complaining of right knee pain that started 5 days prior to arrival. His pain was localized below the knee and associated with right calf swelling and redness. He reported no improvement with outpatient treatment with Keflex from his PCP. He denies any injuries or any insect bites but reported a blister on the inside of his right ankle that ruptured and started leaking clear fluid. He had an MRI of the lower extremity revealing soft tissue swelling. In the emergency room he was afebrile, heart rate 78, respirations 20, blood pressure 118/74, and SpO2 94%. His white blood cell count 16.8, CRP was 227, RLE ultrasound ws negative for DVT, x-ray revealed Mild soft tissue swelling about the ankle.with no acute osseous abnormality of the right tib-fib. CC: Loren Cole MD Past Med Surg Social Fam HX - Past Medical History Medical history: atrial fibrillation, cancer, kidney stones, other Psychiatric history: no psych history - Past Surgical History Surgical History: cholecystectomy - Social History Smoking Status: Current every day smoker Packs per day: 1 Smokeless Tobacco Status: Yes Alcohol use: occasionally Drug use: none - Family History Paternal Grandmother Living Status: Cause of : colon cancer Hx Family Cancer: Yes (Colon cancer) Father Living Status: Cause of : ALS Hx Family Cardiac Disorders: Yes ([place], Triple bipass) Infectious Disease-CN:Meds Cephalexin [Keflex] 500 mg PO TID 04/04/17 [History] Tramadol HCl [Ultram] 50 - 100 mg PO Q6H PRN 04/04/17 [History] Allergies ivp dye Adverse Reaction (Uncoded 04/04/17 12:42) Difficulty Breathing Exam - Constitutional Vitals: Temp Pulse Resp BP Pulse Ox 97.4 F L 86 16 121/77 96 04/07/17 11:41 04/07/17 11:41 04/07/17 11:41 04/07/17 11:41 04/07/17 11:41 Infectious Disease CN: Results - Labs CBC & Chem 7: 04/07/17 04:25 04/07/17 04:25 - VTE Documentation of Mechanical Device: Venous foot pump, device Consult Discharge Plan - Plan Referrals: Rosa Baugh MD [Primary Care Provider] - - Attending Attestation I examined this patient and my medical decision-making was reviewed with the Resident Physician. I agree with the documented findings, disposition and treatment plan as described except to the extent set forth below. This is an addendum to original report dictated by Dr. Arriaga resident physician , please refer to his note for full details. Patient is a 56-year-old gentleman admitted to [place] on 04/04/17 with right knee pain, we are consulted on 04/07/2017 for right lower limb cellulitis and antibiotics recommendations. Patient is a 56-year-old gentleman with a past medical history mentioned below including colon cancer presented to the hospital right knee pain that started about 5 days prior to admission. Patient had an MRI done on 04/04/17 which revealed diffuse nonspecific of subcutaneous edema above the knee with no focal fluid collection noted. Small amount of fluid in the deep infrapatellar bursa may reflect mild bursitis. Trace knee joint effusion no findings suggestive of septic arthritis. Since admission patient has been afebrile, normal cardiac, resenting obesity of 16.8 with 92% neutrophils no bands with elevated CRP. We ll also obtain one only which came back negative. Patient was evaluated by orthopedics and they recommended no surgical intervention, based on clinical and MRI findings. Patient was started on empiric vancomycin and Zosyn on . We are asked to evaluate the patient and make further recommendations. Currently patient is afebrile, WBC has normalized, Vanco trough was 14 yesterday. At this point
--- NOTE | 2017-04-07 15:27 | Internal Med Progress Note ---
Date of Encounter: 04/07/17 Time of Encounter: 15:25 - Assessment and plan (1) Cellulitis of right lower extremity Current Visit: Yes Status: Acute Assessment and plan: admitted with Cellulitis of right lower extremity had previous history of colon cancer was seen by LOW VOLTAGE ELECTRICIAN (PCP) and referred to ortho for ?bursitis. Seen by Ortho as outpatient and MRI was done which did not show any knee joint involvement. admitted in view of worsening cellulitis. Started on appropriate abx and Ortho recommendations appreciated. US Lower extremity :negative for DVT plan will keep close follow up on blood culturesver will continue present treatment leg elevation will follow ortho recommendations 04/06/2017. Overnight events noted. Possibility of her compartment syndrome was raised due to the severe pain. Orthopedic input noted and appreciated. Plan: We will continue antibiotics for now. Elevation of foot. Close observation. 04/07/2017 noted worsening cellulitis. over nam [place] area ?early abscess. on Vanc and Zosyn : Day 4 ortho onboard plan will get ID and Surgery opinion. cont abx (2) Colon cancer Current Visit: Yes Status: Resolved Assessment and plan: history of colon cancer with prolong hospitalization with multiple surgeries in past Qualifiers: Colon location: unspecified part of colon Qualified Code(s): C18.9 - Malignant neoplasm of colon, unspecified (3) Tobacco abuse disorder Current Visit: Yes Status: Chronic Assessment and plan: active smoker. not willing to quit (4) DVT prophylaxis Current Visit: Yes Status: Acute Assessment and plan: appropriate DVT prophylaxis. Late entry: i had seen this patient on 04/05 and note was generated on 04/05 but due to another patient's acute illness this note was not completed on 04/05. this note is complete on 04/06 but should be bill for 04/05. Medical decision making: patient's clinical condition may worse in spite of appropriate medications due underlying condition. - Subjective Interval history: Patient seen and examined. Chart reviewed. Patient is lying comfortably in her bed. Patient complains of right extremity pain. Patient denies cough, shortness of breath nausea and vomiting. 04/06/2017. Patient seen and examined. HEENT is comfortably lying in the bed. Noted that there is a still swelling of the right lower extremity. Orthopedic input appreciated. 04/07/2017 patient seen and examined. noted erythematus swelling along with ?abscess over nam. denies chest pain, SOB, abdominal pain and nausea. - Constitutional Vitals: Temp Pulse Resp BP Pulse Ox 97.4 F L 86 16 121/77 96 04/07/17 11:41 04/07/17 11:41 04/07/17 11:41 04/07/17 11:41 04/07/17 11:41 General appearance: Present: A&O X 3, morbidly obese, pleasant, no acute distress - Head Head exam: Present: atraumatic, normocephalic - Eye Eye exam: Present: PERRL, conjuntiva pink, sclera anicteric Pupils: Present: PERRL - Neck Neck exam general surgery: Present: supple, trachea midline. Absent: lymphadenopathy - Respiratory Respiratory exam: Present: CTAB. Absent: accessory muscle use, rales, rhonchi, wheezes - Cardiovascular Cardiovascular exam: Present: RRR, +S1, +S2. Absent: diastolic murmur, gallop, rubs, systolic murmur - GI/Abdominal GI/Abdominal exam: Present: normal bowel sounds, soft, no peritoneal signs. Absent: distended, tenderness - Extremities Exam Extremities exam: Present: warm, radial pulses palpable and symetrical. Absent : calf tenderness, cyanotic, pedal edema Additional comments: right leg cellulitis, right tibial fluctuating swelling ? abscess - Neurological Exam Neurological exam: Present: CN II-XII intact, oriented X3, no focal deficits. Absent: pronater drift, facial droop, speech deficit - Skin Skin exam: Present: dry, intact Internal Medicine: Result - Labs CBC & Chem 7: 04/07/17 04:25 04/07/17 04:25 Labs: Short CBC 04/07/17 Range/Units 04:25 WBC 9.3 (4.3-11.1) K/mcL Hgb 11.6 L (12.9-16.9) g/dL Hct 35.3 L (37.5-50.1) % Plt Count 261 (140-400) K/mcL Neutrophils # 6.4 (1.6-8.9) K/mcL BMP 04/07/17 04:25 Sodium 136 Potassium 3.7 Chloride 104 Carbon Dioxide 26 BUN 13 Creatinine 0.93 Glucose 100 H Calcium 8.7 Liver Function 04/07/17 Range/Units 04:25 Total Bilirubin 0.5 (0.2-1.2) mg/dL AST 34 (5-34) Units/L ALT 69 H (0-55) Units/L Alkaline Phosphatase 103 (38-126) Units/L Albumin 2.4 L (3.5-5.0) g/dL - VTE Documentation of Mechanical Device: Venous foot pump, device Consult Discharge Plan - Plan Referrals: Rosa Baugh MD [Primary Care Provider] -
--- NOTE | 2017-04-07 15:33 | Infectious Disease Consult ---
Date of Encounter: 04/07/17 Time of Encounter: 14:26 Assessment and Plan (1) Cellulitis of right lower extremity Status: Acute Assessment and plan: MRI done on 04/04/17 which revealed diffuse nonspecific of subcutaneous edema above the knee with no focal fluid collection noted. Small amount of fluid in the deep infrapatellar bursa may reflect mild bursitis. Trace knee joint effusion no findings suggestive of septic arthritis. Patient reports he has cats at home. Pasteurella multocida is in the differential. Since admission patient has been afebrile, normal cardiac, resenting obesity of 16.8 with 92% neutrophils no bands with elevated CRP. Blood cultures negative to date. Patient was evaluated by orthopedics and they recommended no surgical intervention, based on clinical and MRI findings. Patient was started on empiric vancomycin and Zosyn on 04/04/17. Vanco trough was 14 yesterday. Recommendations: Right medial ankle wound culture collected. Continue IV Zosyn and Vancomycin. Will likely transition to PO Bactim for 10 to 14 days upon discharge. Duration of antibiotics will depend on clinical picture. Please continue to monitor for drug toxicities. Please continue to follow renal function. (2) Tobacco abuse disorder Status: Chronic (3) Colon cancer Status: Resolved Qualifiers: Colon location: unspecified part of colon Qualified Code(s): C18.9 - Malignant neoplasm of colon, unspecified Infectious Disease HPI - Data of Consult Consult date: 04/07/17 Requesting Physician: Loren Cole MD Primary Care Provider: Rosa Baugh MD - Consult Narrative Reason for consult: right lower limb cellulitis History of present illness: Mr. Rivers is a 56 year old male admitted on 04/04/17 for cellulitis of the right lower extremity. Infectious disease was consulted on 04/06/17 for right lower lobe cellulitis. Mr. Rivers is a 56 year old male with a PMH significant for colon cancer who presented to the hospital complaining of right knee pain that started 5 days prior to arrival. His pain was localized below the knee and associated with right calf swelling and redness. He reported no improvement after two days of outpatient treatment with Keflex QID from his PCP. He denies any injuries or any insect bites but reported a blister on the inside of his right ankle that ruptured and started leaking clear fluid. He had an MRI of the lower extremity revealing soft tissue swelling. Since admission, patient met one SIRS criteria for leukocytosis. He was afebrile , heart rate 78, respirations 20, blood pressure 118/74, and SpO2 94%. Labs revealed white blood cell count 16.8, CRP was 227, peripheral blood cultures show no growth to date. RLE ultrasound was negative for DVT, x-ray revealed mild soft tissue swelling about the ankle with no acute osseous abnormality of the right tib-fib. Patient was started on Vancomycin and Zosyn on 04/04/17. Ortho was consulted and recommend no surgical intervention at this time. Today the patient reports improvement in right leg swelling an denies fever, chills, CP, SOB, or right leg pain. Patient reports pain with ROM. CC: Loren Cole MD Past Med Surg Social Fam HX - Past Medical History Medical history: atrial fibrillation, cancer, kidney stones, other Psychiatric history: no psych history - Past Surgical History Surgical History: cholecystectomy - Social History Smoking Status: Current every day smoker Packs per day: 1 Smokeless Tobacco Status: Yes Alcohol use: occasionally Drug use: none Occupational status: employed (sales floor team leader, paper converter) - Family History Paternal Grandmother Living Status: Cause of : colon cancer Hx Family Cancer: Yes (Colon cancer) Father Living Status: Cause of : ALS Hx Family Cardiac Disorders: Yes ([place], Triple bipass) Infectious Disease-CN:Meds Cephalexin [Keflex] 500 mg PO TID 04/04/17 [History] Tramadol HCl [Ultram] 50 - 100 mg PO Q6H PRN 04/04/17 [History] Allergies ivp dye Adverse Reaction (Uncoded 04/04/17 12:42) Difficulty Breathing Review of systems: Travel: denies recent travel Animal exposure: Patient has cat t home. He denies any cat scratches Sick contacts: Denies exposure to small children. Diet: denies ingestion of undercooked or raw meats. Dental: denies recent dental procedures - Constitutional Constitutional: Present: chills, fever(s) (subjective, low grade fevers). Absent: night sweats, weight gain, weight loss - EENT Eyes: Absent: change in vision Nose, mouth and throat: Absent: nasal discharge, sinus pressure, sore throat - Cardiovascular Cardiovascular: Absent: chest pain, orthopnea, palpitations, rapid heart rate - Respiratory Respiratory: Absent: dyspnea, hemoptysis, wheezing - Gastrointestinal Gastrointestinal: Present: constipation. Absent: abdominal pain, diarrhea, nausea, vomiting - Musculoskeletal Musculoskeletal: Present: arthralgias, joint swelling, limited range of motion. Absent: muscle weakness - Integumentary Integumentary: Present: erythema, new lesions, skin ulcer (right medial ankle), swelling, wounds - Neurological Neurological: Absent: numbness, paresthesias, sensory deficit - Endocrine Endocrine: Absent: polydipsia, polyphagia, polyuria Exam - Constitutional Vitals: Temp Pulse Resp BP Pulse Ox 97.4 F L 86 16 121/77 96 04/07/17 11:41 04/07/17 11:41 04/07/17 11:41 04/07/17 11:41 04/07/17 11:41 General appearance: cooperative, no acute distress, no febrile, no obese - Head Head exam: Present: atraumatic, normal inspection, normocephalic - Eye Eye exam: Present: PERRL, conjuntiva pink - ENT ENT exam: Present: mucous membranes moist, normal oropharynx - Neck Neck exam: Present: full ROM, normal inspection. Absent: lymphadenopathy, tenderness, thyromegaly - Respiratory Respiratory exam: Present: CTAB. Absent: rales, tachypnea - Cardiovascular Cardiovascular exam: Present: RRR, +S1, +S2. Absent: diastolic murmur, systolic murmur - GI/Abdominal GI/Abdominal exam: Present: normal bowel sounds, soft. Absent: distended, guarding, rebound, tenderness - Extremities Exam Additional comments: Swelling, erythema over tibial tubercle with proximal streaking. no palpable abscess, Compartments soft, Neurovascularly intact, Pain-free motion right knee 1.5x2cm ulcer x2 over right medial ankle with yellow/ green purulent drainage, surrounding erythema, bandage saturated - Expanded Lower Extremity Exam Ankle exam: Present: erythema, swelling - Skin Skin exam: Present: erythema, warm Additional comments: erthyema over right tibial tubercle with proximal streaking. 1.5x2cm ulcer x2 over right medial ankle with yellow/ green purulent drainage Infectious Disease CN: Results - Labs CBC & Chem 7: 04/07/17 04:25 04/07/17 04:25 Cultures: Microbiology 04/04/17 16:02 Blood Culture - Preliminary Peripheral Venipuncture No growth. - VTE Documentation of Mechanical Device: Venous foot pump, device Consult Discharge Plan - Plan Referrals: Rosa Baugh MD [Primary Care Provider] - - Attending Attestation I examined this patient and my medical decision-making was reviewed with the Resident Physician. I agree with the documented findings, disposition and treatment plan as described except to the extent set forth below. This is an addendum to original report dictated by Dr. Arriaga resident physician , please refer to his note for full details. Patient is a 56-year-old gentleman admitted to [facility] on 04/04/17 with right knee pain, we are consulted on 04/07/2017 for right lower limb cellulitis and antibiotics recommendations. Patient is a 56-year-old gentleman with a past medical history mentioned below including colon cancer presented to the hospital right knee pain that started about 5 days prior to admission. Patient had an MRI done on 04/04/17 which revealed diffuse nonspecific of subcutaneous edema above the knee with no focal fluid collection noted. Small amount of fluid in the deep infrapatellar bursa may reflect mild bursitis. Trace knee joint effusion no findings suggestive of septic arthritis. Since admission patient has been afebrile, normal cardiac, resenting obesity of 16.8 with 92% neutrophils no bands with elevated CRP. We ll also obtain one only which came back negative. Patient was evaluated by orthopedics and they recommended no surgical intervention, based on clinical and MRI findings. Patient was started on empiric vancomycin and Zosyn on . We are asked to evaluate the patient and make further recommendations. Currently patient is afebrile, WBC has normalized, Vanco trough was 14 yesterday. clinically patient continues to have swelling and redness but he states it's much improved. has some pain on active movement but no pain on passive movement of the ankle or the knee on the right a small ulcerated lesion on the ankle with no drainage, cultures obtained for now continue current antibiotics await cultures to finalize will tailor antibiotics once patient ready to be discharged
--- NOTE | 2017-04-07 16:09 | General Surgery Consult Note ---
<Rosa Foley Charles - Last Filed: 04/07/17 16:33> Date of Encounter: 04/07/17 Time of Encounter: 16:00 Assessment and Plan (1) Cellulitis of right lower extremity Current Visit: Yes Status: Acute Continue Zosyn and Vancomycin Dr. Murillo to evaluate May consider further imaging- check for organized fluid collection Supportive care/pain control Will continue to follow for recommendations and assess progress History of Present Illness Consult date: 04/07/17 Reason for consult: other (RLE cellulitis) Requesting physician: Kunal Mccloud History of present illness: Mr. Rivers is a very pleasant 56 year old male with a past medical history significant for colon cancer. He complains of an 8 day history of RLE swelling, redness and tenderness. He denies any injuries to his RLE. Denies any insect bites. He states that he did develop a blister to his right ankle shortly before development of leg pain. He was initially seen by his PCP and was treated with Keflex and Steroids. He reports that his symptoms did not improve and he presented to [facility] for evaluation. He had an MRI complete and then was admitted to the hospital for IV antibiotic therapy. He reports low grade fever up to 99.6. He reports that it is difficult to walk due to significant RLE discomfort. He states that the swelling has significantly improved with antibiotic therapy. Denies any improvement in his pain symptoms. He has never experienced anything like this in the past. We have been asked to see and evaluate the patient for recommendations. Past Med Surg Social Fam HX - Past Medical History Source: patient, old records reviewed Medical history: atrial fibrillation, cancer (colon), kidney stones, other Psychiatric history: no psych history - Past Surgical History Surgical History: cholecystectomy, colectomy (partial or colon cancer), herniorrhaphy (right inguina hernia repair, umbilical hernia repair as infant), other (SBR; liver biopsy; ileostomy revearsal, A-port insertion, colonoscopy ( last 2011)) - Social History Smoking Status: Current every day smoker Packs per day: 1 Smokeless Tobacco Status: Yes Alcohol use: occasionally Drug use: none Current living situation: Home - Independent Activity Level: Independent ambulation - Family History Paternal Grandmother Living Status: Cause of : colon cancer Hx Family Cancer: Yes (Colon cancer) Father Living Status: Cause of : ALS Hx Family Cardiac Disorders: Yes ([place], Triple bipass) Medications and Allergies Cephalexin [Keflex] 500 mg PO TID 04/04/17 [History] Tramadol HCl [Ultram] 50 - 100 mg PO Q6H PRN 04/04/17 [History] Allergies ivp dye Adverse Reaction (Uncoded 04/04/17 12:42) Difficulty Breathing Review of Systems All systems PM: reviewed and no additional remarkable complaints except as stated (in the HPI) All systems PM: A 10-system review of systems was performed and is negative for pertinent findings except as documented above in the HPI. General Surgery Exam Initial Vital Signs Temp Pulse Resp BP Pulse Ox 98.1 F 78 20 118/74 94 04/04/17 12:43 04/04/17 12:43 04/04/17 12:43 04/04/17 12:43 04/04/17 12:43 - General physical appearance well developed, well nourished, no distress, moderate pain - Eyes PERRL, normal ocular movement - ENT normal mucosa, atraumatic, normocephalic - Neck trachea midline - Respiratory normal respiratory effort, clear to auscultation - Cardiovascular Cardiovascular exam: Present: RRR - Abdomen Abdomen general surgery: Present: bowel sounds present, soft, non tender Hernia: Present: incisional - Integumentary Integumentary general surgery: Present: warm and dry, other (RLE with erythema and induration noted, warm to touch, tender to examination) - Neurologic Present: CN 2-12 grossly intact - Musculoskeletal Present: other (limited ROM of right lower extremity due to discomfort) - Psychiatric Psychiatric general surgery: Present: A&Ox3 Exam Initial Vital Signs Temp Pulse Resp BP Pulse Ox 98.1 F 78 20 118/74 94 04/04/17 12:43 04/04/17 12:43 04/04/17 12:43 04/04/17 12:43 04/04/17 12:43 Results - Labs 04/07/17 04:25 04/07/17 04:25 Abnormal lab results RBC 4.14 M/mcL (4.19-5.50) L 04/07/17 04:25 Hgb 11.6 g/dL (12.9-16.9) L 04/07/17 04:25 Hct 35.3 % (37.5-50.1) L 04/07/17 04:25 MPV 9.0 fL (9.4-12.4) L 04/07/17 04:25 Glucose 100 mg/dL (70-99) H 04/07/17 04:25 ALT 69 Units/L (0-55) H 04/07/17 04:25 C-Reactive Protein 227 mg/L (Less than 5) H 04/04/17 16:02 Serum Total Protein 5.9 g/dL (6.0-8.3) L 04/07/17 04:25 Albumin 2.4 g/dL (3.5-5.0) L 04/07/17 04:25 Albumin/Globulin Ratio 0.7 (1.1-2.2) L 04/07/17 04:25 Diabetes panel 04/07/17 Range/Units 04:25 Sodium 136 (136-145) mEq/L Potassium 3.7 (3.5-4.5) mEq/L Chloride 104 (98-109) mEq/L Carbon Dioxide 26 (19-29) mEq/L BUN 13 (8-26) mg/dL Creatinine 0.93 (0.72-1.25) mg/dL Glucose 100 H (70-99) mg/dL Calcium 8.7 (8.6-10.8) mg/dL AST 34 (5-34) Units/L ALT 69 H (0-55) Units/L Alkaline Phosphatase 103 (38-126) Units/L Albumin 2.4 L (3.5-5.0) g/dL Calcium panel 04/07/17 Range/Units 04:25 Calcium 8.7 (8.6-10.8) mg/dL Albumin 2.4 L (3.5-5.0) g/dL Pituitary panel 04/07/17 Range/Units 04:25 Sodium 136 (136-145) mEq/L Potassium 3.7 (3.5-4.5) mEq/L Chloride 104 (98-109) mEq/L Carbon Dioxide 26 (19-29) mEq/L BUN 13 (8-26) mg/dL Creatinine 0.93 (0.72-1.25) mg/dL Glucose 100 H (70-99) mg/dL Calcium 8.7 (8.6-10.8) mg/dL Adrenal panel 04/07/17 Range/Units 04:25 Sodium 136 (136-145) mEq/L Potassium 3.7 (3.5-4.5) mEq/L Chloride 104 (98-109) mEq/L Carbon Dioxide 26 (19-29) mEq/L BUN 13 (8-26) mg/dL Creatinine 0.93 (0.72-1.25) mg/dL Glucose 100 H (70-99) mg/dL Calcium 8.7 (8.6-10.8) mg/dL Total Bilirubin 0.5 (0.2-1.2) mg/dL AST 34 (5-34) Units/L ALT 69 H (0-55) Units/L Alkaline Phosphatase 103 (38-126) Units/L Albumin 2.4 L (3.5-5.0) g/dL All other labs normal. - Imaging Additional studies: Tibia/Fibula X-Ray 04/04/17 16:40 IMPRESSION: No acute osseous abnormality of the right tib-fib. Mild soft tissue swelling about the ankle. D/ / Hussein Gan MD / Hussein Gan MD Interpreting Provider: Hussein Gan MD Consult Discharge Plan - Plan Referrals: Rosa Baugh MD [Primary Care Provider] - - Attending Attestation For this encounter, I have reviewed the FINANCE INSURANCE MANAGER or PA documentation, treatment plan, and medical decision making; and I have had face to face time with this patient. <Rex Murillo - Last Filed: 04/07/17 17:46> Date of Encounter: 04/07/17 Review of Systems All systems PM: A 10-system review of systems was performed and is negative for pertinent findings except as documented above in the HPI. General Surgery Exam Initial Vital Signs Temp Pulse Resp BP Pulse Ox 98.1 F 78 20 118/74 94 04/04/17 12:43 04/04/17 12:43 04/04/17 12:43 04/04/17 12:43 04/04/17 12:43 Exam Initial Vital Signs Temp Pulse Resp BP Pulse Ox 98.1 F 78 20 118/74 94 04/04/17 12:43 04/04/17 12:43 04/04/17 12:43 04/04/17 12:43 04/04/17 12:43 Results - Labs 04/07/17 04:25 04/07/17 04:25 Abnormal lab results RBC 4.14 M/mcL (4.19-5.50) L 04/07/17 04:25 Hgb 11.6 g/dL (12.9-16.9) L 04/07/17 04:25 Hct 35.3 % (37.5-50.1) L 04/07/17 04:25 MPV 9.0 fL (9.4-12.4) L 04/07/17 04:25 Glucose 100 mg/dL (70-99) H 04/07/17 04:25 ALT 69 Units/L (0-55) H 04/07/17 04:25 C-Reactive Protein 227 mg/L (Less than 5) H 04/04/17 16:02 Serum Total Protein 5.9 g/dL (6.0-8.3) L 04/07/17 04:25 Albumin 2.4 g/dL (3.5-5.0) L 04/07/17 04:25 Albumin/Globulin Ratio 0.7 (1.1-2.2) L 04/07/17 04:25 Diabetes panel 04/07/17 Range/Units 04:25 Sodium 136 (136-145) mEq/L Potassium 3.7 (3.5-4.5) mEq/L Chloride 104 (98-109) mEq/L Carbon Dioxide 26 (19-29) mEq/L BUN 13 (8-26) mg/dL Creatinine 0.93 (0.72-1.25) mg/dL Glucose 100 H (70-99) mg/dL Calcium 8.7 (8.6-10.8) mg/dL AST 34 (5-34) Units/L ALT 69 H (0-55) Units/L Alkaline Phosphatase 103 (38-126) Units/L Albumin 2.4 L (3.5-5.0) g/dL Calcium panel 04/07/17 Range/Units 04:25 Calcium 8.7 (8.6-10.8) mg/dL Albumin 2.4 L (3.5-5.0) g/dL Pituitary panel 04/07/17 Range/Units 04:25 Sodium 136 (136-145) mEq/L Potassium 3.7 (3.5-4.5) mEq/L Chloride 104 (98-109) mEq/L Carbon Dioxide 26 (19-29) mEq/L BUN 13 (8-26) mg/dL Creatinine 0.93 (0.72-1.25) mg/dL Glucose 100 H (70-99) mg/dL Calcium 8.7 (8.6-10.8) mg/dL Adrenal panel 04/07/17 Range/Units 04:25 Sodium 136 (136-145) mEq/L Potassium 3.7 (3.5-4.5) mEq/L Chloride 104 (98-109) mEq/L Carbon Dioxide 26 (19-29) mEq/L BUN 13 (8-26) mg/dL Creatinine 0.93 (0.72-1.25) mg/dL Glucose 100 H (70-99) mg/dL Calcium 8.7 (8.6-10.8) mg/dL Total Bilirubin 0.5 (0.2-1.2) mg/dL AST 34 (5-34) Units/L ALT 69 H (0-55) Units/L Alkaline Phosphatase 103 (38-126) Units/L Albumin 2.4 L (3.5-5.0) g/dL All other labs normal. - Attending Attestation I personally evaluated the patient and discussed the patient's care with the clinical nurse practitioner. I personally reviewed the MRI. I believe that the patient's presentation and MRI are consistent with cellulitis and extensive edema of the right lower extremity. Both on physical examination and on MRI I was unable to identify a central area of abscess that would require incision and drainage. I shared this information with the patient. I would recommend continued clinical evaluation and further imaging based on changes in exam. We will follow along with you. No indication for incision and drainage at this time. Rex Murillo MD FACS
[2017-04-08] MEDS: Piperacillin/Tazobactam 3.375 GM in D5% in Water (Mini-Bag+) 100 ML IVPB SCH ×2 (01:08→09:57)
[2017-04-08] MEDS: *HR* OxyCODONE Immed Rel 5 MG TABLET PO PRN ×3 (01:16→15:04)
[2017-04-08] MEDS: Vancomycin 1,250 MG in D5% in Water 250 ML IVPB SCH (05:33)
[2017-04-08] MEDS: *HR* Enoxaparin 40 MG/0.4 ML SYRINGE SQ SCH (05:34)
--- NOTE | 2017-04-08 07:45 | Infectious Disease Progress No ---
Date of Encounter: 04/08/17 Time of Encounter: 07:44 - Assessment and Plan (1) Cellulitis of right lower extremity Current Visit: Yes Status: Acute MRI done on 04/04/17 which revealed diffuse nonspecific of subcutaneous edema above the knee with no focal fluid collection noted. Small amount of fluid in the deep infrapatellar bursa may reflect mild bursitis. Trace knee joint effusion no findings suggestive of septic arthritis. Patient reports he has cats at home. Pasteurella multocida is in the differential. Since admission patient has been afebrile, normal cardiac, Intitial WBC 16.8 with 92% neutrophils no bands with elevated CRP. Leukocytosis now resolved. Blood cultures negative to date. Patient was evaluated by orthopedics and they recommended no surgical intervention, based on clinical and MRI findings. Patient was started on empiric vancomycin and Zosyn on 04/04/17. Vanco trough was 12.9 yesterday. Recommendations: Right medial ankle wound culture shows no growth to date. Blood cultures show no growth to date. Creatinine clearance 100. Discontinue IV Zosyn and Vancomycin. Take PO Bactim DS BID until 04/18/17. Follow up with Dr. Howe in clinic in 2 weeks. (2) Tobacco abuse disorder Current Visit: Yes Status: Chronic (3) Colon cancer Current Visit: No Status: Resolved Qualifiers: Colon location: unspecified part of colon Qualified Code(s): C18.9 - Malignant neoplasm of colon, unspecified - Subjective Interval history: No acute events noted overnight. Patient resting comfortably in bed. Patient reports ambulating in hallway with walker. Patient reports significant improvement with IV antibiotics since admission and left leg swelling has decreased. He is on day 5 of IV Vancomycin and Zosyn and inquiring about discharge plan. Infect Dis PN-Objective Data - Labs CBC & Chem 7: 04/07/17 04:25 04/07/17 04:25 Labs: Laboratory Results - last 24 hr 04/07/17 15:01 Vancomycin Trough 12.9 Cultures: Microbiology 04/07/17 15:33 Wound Culture - Preliminary Right Ankle No growth. 04/04/17 16:02 Blood Culture - Preliminary Peripheral Venipuncture No growth. Exam - Constitutional Vitals: Temp Pulse Resp BP Pulse Ox 98.4 F 83 15 141/88 97 04/08/17 07:41 04/08/17 07:39 04/07/17 23:51 04/08/17 07:39 04/08/17 07:41 General appearance: no acute distress, no febrile, no obese - Head Head exam: Present: atraumatic, normal inspection, normocephalic - Eye Eye exam: Present: PERRL, conjuntiva pink - ENT ENT exam: Present: mucous membranes moist, normal oropharynx Additional comments: no leukoplakia/ oral thrush - Neck Neck exam: Present: normal inspection. Absent: lymphadenopathy, tenderness, thyromegaly - Respiratory Respiratory exam: Present: CTAB. Absent: wheezes - Cardiovascular Cardiovascular exam: Present: RRR, +S1, +S2. Absent: diastolic murmur, systolic murmur, tachycardia - GI/Abdominal GI/Abdominal exam: Present: normal bowel sounds, soft. Absent: tenderness - Extremities Exam Additional comments: Decreased swelling, erythema over tibial tubercle with minimal proximal streaking, no palpable abscess, Compartments soft, Neurovascularly intact, Pain- free right knee range of motion 1.5x2cm ulcer x2 over right medial ankle with dressing in place, bandage non- saturated - Skin Additional comments: Swelling, erythema over tibial tubercle with proximal streaking. 1.5x2cm ulcer x2 over right medial ankle with dressing in place, bandage non- saturated - VTE Documentation of Mechanical Device: Venous foot pump, device Consult Discharge Plan - Plan Instructions: Cellulitis (DC) Additional Instructions: Take your full course of antibiotics. Make sure you continue to move and exercise the leg, if you feel that you may benefit from physical therapy contact your PCP. Elevate your leg when lying down to prevent fluid from accumulating as it heals. Watch for worsening redness, heat, swelling, pain or infection streaking up your leg towards your heart. If you experience any of these things go to the ER. Leave the bandage on your ankle for 2-3 days and then remove it, wash the area with warm soapy water and keep it clean. Follow up with Infectious Disease in 2 weeks. Follow up with your PCP within 5 days. Referrals: Rosa Baugh MD [Primary Care Provider] - Walter Howe MD [Partnered Physician] - Prescriptions: OxyCODONE Immed Rel [Roxicodone 5 MG] 5 mg PO Q6HR PRN #20 tab PRN Reason: Moderate Pain (4-6) Sulfamethoxazole/Trimeth DS [Bactrim DS] 1 each PO BID #20 tablet - Attending Attestation I examined this patient and my medical decision-making was reviewed with the Resident Physician. I agree with the documented findings, disposition and treatment plan as described except to the extent set forth below. Discussed with Dr. Thibodeaux who is on the case today, patient was threatening to leave AMA. Doesn't get discharged today. Continues to have significant erythema and bruising. Patient advised if symptoms persist or don't improve or get worse to seek medical attention right away.
[2017-04-08] MEDS: Gabapentin 300 MG CAPSULE PO SCH ×2 (09:57→15:04)
--- NOTE | 2017-04-08 10:38 | General Surgery Progress Note ---
<Doug Dumont - Last Filed: 04/09/17 10:48> Date of Encounter: 04/08/17 Time of Encounter: 06:15 - Assessment and Plan (1) Cellulitis of right lower extremity Status: Acute Ordered US RLE to investigate for abscess No fluid collection noted - Cellulitis only, so surgery not indicated at this time (2) DVT prophylaxis Status: Acute Subjective Patient reports: still having pain, afebrile Narrative: Patient has not noted a significant change in his level of pain nor any appreciable difference in his leg since starting antibiotic therapy Objective Vital Signs - Last 8 Hours Temp Pulse BP Pulse Ox 04/08/17 07:41 98.4 F 97 04/08/17 07:39 83 141/88 Intake and Output 04/07/17 04/08/17 04/08/17 23:59 07:59 15:59 Intake Total 350 / 350 100 / 100 Output Total 0 / 0 Balance 350 / 350 100 / 100 Intake: IV Fluids 350 / 350 100 / 100 Zosyn 3.375 GM In 100 / 100 100 / 100 Dextrose 5% (Minibag+) 100 ML 100 ML @ 25 mls/hr IVPB Q8HR [facility] Rx#: [id number] Vancocin 1,250 MG In 250 / 250 Dextrose 5% 250 ML @ 166. 667 mls/hr IVPB Q12H [facility] Rx#:[id number] Output: Urine 0 / 0 Other: Stool Size Moderate Stool Consistency formed Stool Characteristics Normal for Patient Stool Color Brown # Voids 1 # Bowel Movements 1 - General physical appearance well developed, well nourished, no distress - Eyes normal ocular movement - ENT atraumatic, normocephalic - Neck Neck exam: trachea midline - Respiratory normal expansion, normal respiratory effort, clear to auscultation - Cardiovascular Cardiovascular exam: Present: RRR - Integumentary other (Skin remains erythematous, edematous, and warm on the right lower extremity. There may be some extension up the posterior of the thigh, but there is otherwise no significant change from yesterday) - Musculoskeletal other (difficulty ambulating due to pain in the right leg) - Psychiatric speech is normal - Labs 04/07/17 04:25 04/07/17 04:25 - Imaging Additional Studies: US Extremity report and image reviewed - VTE Documentation of Mechanical Device: Venous foot pump, device Consult Discharge Plan - Plan Instructions: Cellulitis (DC) Additional Instructions: Take your full course of antibiotics. Make sure you continue to move and exercise the leg, if you feel that you may benefit from physical therapy contact your PCP. Elevate your leg when lying down to prevent fluid from accumulating as it heals. Watch for worsening redness, heat, swelling, pain or infection streaking up your leg towards your heart. If you experience any of these things go to the ER. Leave the bandage on your ankle for 2-3 days and then remove it, wash the area with warm soapy water and keep it clean. Follow up with Infectious Disease in 2 weeks. Follow up with your PCP within 5 days. Referrals: Rosa Baugh MD [Primary Care Provider] - Walter Howe MD [Partnered Physician] - Prescriptions: OxyCODONE Immed Rel [Roxicodone 5 MG] 5 mg PO Q6HR PRN #20 tab PRN Reason: Moderate Pain (4-6) Sulfamethoxazole/Trimeth DS [Bactrim DS] 1 each PO BID #20 tablet <Rex Murillo - Last Filed: 04/09/17 14:04> Date of Encounter: 04/08/17 Objective Intake and Output 04/08/17 04/09/17 04/09/17 23:59 07:59 15:59 Other: Percent of Meal Consumed 5% - Labs 04/07/17 04:25 04/07/17 04:25 - Attending Attestation I examined this patient and my medical decision-making was reviewed with the Resident Physician. I agree with the documented findings, disposition and treatment plan as described except to the extent set forth below. The patient was seen and evaluated with resident. The patient has a swollen right lower extremity. Review of the radiologic studies fails to demonstrate discrete abscess. If there is a questionable fluctuant area, ultrasound can be used to differentiate this area. We will glad to follow along with you. Rex Murillo MD FACS
--- NOTE | 2017-04-08 15:04 | Internal Med Progress Note ---
Date of Encounter: 04/08/17 Time of Encounter: 15:02 - Assessment and plan (1) Cellulitis of right lower extremity Current Visit: Yes Status: Acute Assessment and plan: Admitted with Cellulitis of right lower extremity after being seen by PCP and referred to ortho for questionable bursitis in the right knee, started on oral keflex as outpt. Seen by Ortho as outpatient and MRI was done which did not show any knee joint involvement. admitted in view of worsening cellulitis. Started on appropriate vanc and zosyn Day 5 Ortho, ID recommendations appreciated. US Lower extremity :negative for DVT Concern overnight 04/06 for compartment syndrome secondary to worsened/severe pain, cellulitis worsened 04/07. Pt evaluated by gen surg, US of LE shows no abscess and confirms cellulitis. Blood and wound cx negative ID reccommends 10-14 days oral bactrim once clinically stable for discharge. WBC normalized, patient is afebrile and requesting discharge. Plan: -Continue IV abx -Continue to monitor progress of cellulitis -Possible discharge tomorrow. (2) Colon cancer Current Visit: No Status: Resolved Assessment and plan: history of colon cancer with prolong hospitalization with multiple surgeries in past Qualifiers: Colon location: unspecified part of colon Qualified Code(s): C18.9 - Malignant neoplasm of colon, unspecified (3) Tobacco abuse disorder Current Visit: Yes Status: Chronic Assessment and plan: active smoker. not willing to quit - Subjective Interval history: Patient seen and examined. He states some slight improvement of his pain, which is worse with movement of the right knee. He notes some improvement of the erythema of the right LE, and states that it has not worsened or traveled more proximally compared to yesterday. Denies f/c, cp, sob, n/v, sensory changes in LE. He is requesting to go home today. - Constitutional Vitals: Temp Pulse Resp BP Pulse Ox 98.8 F 89 17 118/74 96 04/08/17 11:24 04/08/17 11:24 04/08/17 11:24 04/08/17 11:24 04/08/17 11:24 General appearance: Present: cooperative, A&O X 3, pleasant, no acute distress, answers questions appropriately - Head Head exam: Present: atraumatic, normocephalic - Eye Eye exam: Present: PERRL, conjuntiva pink, sclera anicteric Pupils: Present: PERRL - Respiratory Respiratory exam: Present: CTAB. Absent: accessory muscle use, rales, rhonchi, wheezes - Cardiovascular Cardiovascular exam: Present: RRR, +S1, +S2. Absent: diastolic murmur, gallop, rubs, systolic murmur - GI/Abdominal GI/Abdominal exam: Present: normal bowel sounds, soft, no peritoneal signs. Absent: distended, tenderness - Extremities Exam Extremities exam: Present: calf tenderness (on the right), joint swelling ( right knee), normal capillary refill, pedal edema (right), tenderness (right), warm, radial pulses palpable and symetrical Additional comments: right leg cellulitis, right tibial non-fluctuating swelling dressing in place over right medial malleolus from blister related to swelling - Neurological Exam Neurological exam: Present: CN II-XII intact, oriented X3, no focal deficits. Absent: pronater drift, facial droop, speech deficit - Skin Skin exam: Present: dry, erythema, warm Internal Medicine: Result - Labs CBC & Chem 7: 04/07/17 04:25 04/07/17 04:25 - Impressions Impressions Extremity Ultrasound 04/08/17 09:00 IMPRESSION: Moderate subcutaneous edema with overlying skin thickening without discrete fluid collection. Findings are most suggestive of cellulitis given clinical history. D/ / Hailey Rosales MD / Hailey Rosales MD Interpreting Provider: Hailey Rosales MD - VTE Documentation of Mechanical Device: Venous foot pump, device Consult Discharge Plan - Plan Referrals: Rosa Baugh MD [Primary Care Provider] -
[2017-04-08 15:49] VITALS: BP 131/80
--- NOTE | 2017-04-08 17:23 | Discharge Summary ---
<Constance To - Last Filed: 04/08/17 17:15> Date of Encounter: 04/08/17 Time of Encounter: 17:16 - Discharge Diagnosis (1) Cellulitis of right lower extremity Priority: Primary Status: Acute (2) Colon cancer Priority: Secondary Status: Resolved Qualifiers: Colon location: unspecified part of colon Qualified Code(s): C18.9 - Malignant neoplasm of colon, unspecified (3) Tobacco abuse disorder Priority: Primary Status: Chronic - Discharge Medications Prescriptions: OxyCODONE Immed Rel [Roxicodone 5 MG] 5 mg PO Q6HR PRN #20 tab PRN Reason: Moderate Pain (4-6) Sulfamethoxazole/Trimeth DS [Bactrim DS] 1 each PO BID #20 tablet Home Medications: Tramadol HCl [Ultram] 50 - 100 mg PO Q6H PRN 04/04/17 [History] OxyCODONE Immed Rel [Roxicodone 5 MG] 5 mg PO Q6HR PRN #20 tab 04/08/17 [Rx] Sulfamethoxazole/Trimeth DS [Bactrim DS] 1 each PO BID #20 tablet 04/08/17 [Rx] Allergies/Adverse Reactions: Allergies ivp dye Adverse Reaction (Uncoded 04/04/17 12:42) Difficulty Breathing Procedures/tests Complete & Pending: Procedures Performed prior 72 hours Category Date Time Status US extremity nonvascular RT [US] Routine Exams 04/08/17 09:00 Completed Venous Doppler [EV venous imaging LE RT] Stat Y 04/06/17 08:13 Completed Date of admission: 04/04/17 21:38 Primary care physician: Rosa Baugh MD Consults: 04/04/17 21:43 Consult to Physician [CONS] Routine Consulting Provider: Miguel Andres Reason for Consult: RLE cellulitis with patellar bursitis Call Completed: Yes 04/07/17 13:07 Consult to Infectious Diseases [CONS] Routine Consulting Provider: Infectious Disease [facility] Reason for Consult: right lower limb cellulitis, Spoke with Dr Savage ( public health internship ) on ID service. Call Completed: Yes 04/07/17 15:39 Consult to Surgery [CONS] Routine Consulting Provider: [facility] Reason for Consult: right nam abscess Call Completed: Yes Discharging clinician: Darien Holbrook Anticipated date of discharge: 04/08/17 - Patient Status Disposition: Home, Self-Care Condition: Good Functional capacity at discharge: uses cane/walker Overall status at discharge: patient is progressing back to baseline - Discharge Instructions Instructions: Cellulitis (DC) Follow Up With: Rosa Baugh MD [Primary Care Provider] - Walter Howe MD [Partnered Physician] - Additional Instructions: Take your full course of antibiotics. Make sure you continue to move and exercise the leg, if you feel that you may benefit from physical therapy contact your PCP. Elevate your leg when lying down to prevent fluid from accumulating as it heals. Watch for worsening redness, heat, swelling, pain or infection streaking up your leg towards your heart. If you experience any of these things go to the ER. Leave the bandage on your ankle for 2-3 days and then remove it, wash the area with warm soapy water and keep it clean. Follow up with Infectious Disease in 2 weeks. Follow up with your PCP within 5 days. - Diet and Activity Activity: increase activity as tolerated, resume usual activities as tolerated Diet: advance to your usual diet Hospital course: Mr. Rivers is a 56 year old male who presented to the hospital for evaluation of right knee pain. Mr. 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 He does not recall having any injuries to the right lower extremity or any insect bites. His pain got worse and was associated with swelling of the right knee and started involving the right calf and causing discoloration of the skin. He noticed some blister formation on the inside of the right ankle that ruptured and started leaking some clear fluid. The day of he reports that the pain is severe with ambulation, mild to moderate after administration of pain medication and at rest, dull and aching about the right knee and right lower extremity and still associated with swelling. He also had associated subjective fevers and body aches. He was treated with his PCP with Keflex and prednisone but did not notice any improvement. He had an MRI of the lower extremity which reportedly showed soft tissue swelling. He was started on IV vancomycin and zosyn and completed 5 days of these antibiotics. Venous doppler was negative for DVT, US of tibial soft tissue swelling negative for abscess formation. The blood and wound cultures were negative. ID saw the patient and recommended 10 days of bactrim with ID f/u. The patient states he is feeling better today and is able to move the right extremity with some pain. He is ambulating with a walker. Discussed concerning signs of worsening infection with the patient and wound care for his ankle. We also discussed making sure to keep exercising and moving his leg as tolerated. He states understanding and requests discharge home today. He is discharged in stable condition with bactrim ds BIDx10 days and 5 days of oxycodone for pain control with his self rehab. He will follow up with his PCP in 5 days and ID in 2 weeks. - Time Spent with Patient Total time spent providing and/or coordinating discharge services: - Constitutional Vitals: Temp Pulse Resp BP Pulse Ox 98.3 F 95 19 131/80 98 04/08/17 15:47 04/08/17 15:47 04/08/17 15:47 04/08/17 15:47 04/08/17 15:47 General appearance: Present: cooperative, A&O X 3, pleasant, no acute distress, answers questions appropriately - Head Head exam: Present: atraumatic, normocephalic - Eye Eye exam: Present: PERRL, conjuntiva pink, sclera anicteric Pupils: Present: PERRL - Respiratory Respiratory exam: Present: CTAB. Absent: accessory muscle use, rales, rhonchi, wheezes - Cardiovascular Cardiovascular exam: Present: RRR, +S1, +S2. Absent: diastolic murmur, gallop, rubs, systolic murmur - GI/Abdominal GI/Abdominal exam: Present: normal bowel sounds, soft, no peritoneal signs. Absent: distended, tenderness - Extremities Exam Extremities exam: Present: calf tenderness (right), joint swelling (right knee) , normal capillary refill, pedal edema (right), tenderness (right), warm, radial pulses palpable and symetrical Additional comments: right leg cellulitis, right tibial non-fluctuating swelling dressing in place over right medial malleolus from blister related to swelling that is superficial, no exudate noted - Neurological Exam Neurological exam: Present: abnormal gait, CN II-XII intact, oriented X3, no focal deficits. Absent: pronater drift, facial droop, speech deficit - Psychiatric Psychiatric exam: Present: normal affect, normal mood - Skin Skin exam: Present: erythema (right LE), warm - VTE Documentation of Mechanical Device: Venous foot pump, device <[place],Darien Nicolás - Last Filed: 04/08/17 23:35> Date of Encounter: 04/08/17 Procedures/tests Complete & Pending: Procedures Performed prior 72 hours Category Date Time Status US extremity nonvascular RT [US] Routine Exams 04/08/17 09:00 Completed Venous Doppler [EV venous imaging LE RT] Stat Y 04/06/17 08:13 Completed Date of admission: 04/04/17 21:38 Primary care physician: Rosa Baugh MD Consults: 04/04/17 21:43 Consult to Physician [CONS] Routine Consulting Provider: Miguel Andres Reason for Consult: RLE cellulitis with patellar bursitis Call Completed: Yes 04/07/17 13:07 Consult to Infectious Diseases [CONS] Routine Consulting Provider: Infectious Disease [place] Reason for Consult: right lower limb cellulitis, Spoke with Dr Savage ( public health internship ) on ID service. Call Completed: Yes 04/07/17 15:39 Consult to Surgery [CONS] Routine Consulting Provider: [facility] Reason for Consult: right nam abscess Call Completed: Yes Hospital course: Mr. Rivers is a 56 year old male - Time Spent with Patient Total time spent providing and/or coordinating discharge services: - Constitutional Vitals: Temp Pulse Resp BP Pulse Ox 98.3 F 95 19 131/80 98 04/08/17 15:47 04/08/17 15:47 04/08/17 15:47 04/08/17 15:47 04/08/17 15:47 - Attending Attestation I have examined the patient and discussed with the Resident. He was going to go AMA today.. he appears to have shown some improvement in the leg pain and edema. Noted increased ROM in the knee as well. He is able to get to the bathroom. He will have close follow up with ID in about a week or so.
--- NOTE | 2017-04-08 17:36 | Event Note ---
<Marv Joyce - Last Filed: 04/08/17 17:32> Date of Encounter: 04/08/17 Time of Encounter: 09:10 Ultrasound of Right lower extremity performed today. Moderate subcutaneous edema with overlying skin thickening is found. Surgery is not indicated at this time, but surgical team will continue to follow-up with the patient. Thank you. <Rex Murillo - Last Filed: 04/09/17 13:56> Date of Encounter: 04/09/17 I examined this patient and my medical decision-making was reviewed with the Resident Physician. I agree with the documented findings, disposition and treatment plan as described except to the extent set forth below. The patient was seen and evaluated with the resident. Ultrasound demonstrates no evidence of abscess. Continued antibiotic therapy is recommended. Rex Murillo MD FACS
[2017-04-08] MEDS ORDERED: Aminoglycoside Consult 1 EACH MC ONE (18:30)
== END 2017-04-08 18:31 | disposition home or self-care (01) | DRG 603 ==
LOC: 3NENU 12:38 → EMEROO 12:38 → 3NENU 18:46
PROVIDERS: ADMIT Family Medicine; ATTEND Internal Medicine